=== PATIENT | female | born 1990 | race Caucasian/White ===

== ENCOUNTER 2019-09-04 09:37 | Emergency (ER) | payer OTHER ==
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
[2019-09-04 10:34] VITALS: BP 107/68
== END 2019-09-04 10:35 | disposition home or self-care (01) ==
LOC: ED 09:37
DX: G44.309 Post-traumatic headache, unspecified, not intractable (principal); F07.81 Postconcussional syndrome
CPT/HCPCS: 99282